=== PATIENT | female | born 1935 | race Caucasian/White ===

== ENCOUNTER → 2019-04-06 | Day surgery (SDC) | payer MEDICARE ==
[~2019-04-06] MED LIST: ACETAMINOPHEN 1,000 MG/100 ML BTL IVPB ONE; BUPIVACAINE 0.5% W/EPI MPF 30 ML VIAL SQ ONE; CEFAZOLIN 2 Gram 2 GM/50 ML BAG IVPB ONE; FENTANYL PF 100MCG/2ML VIAL IV ONE; KETOROLAC 30 MG/ML VIAL IVP ONE; LIDOCAINE 2% MDV (20MG/ML) 20ML VIAL IV ONE; METHYLPREDNISOLONE 40MG/VIAL IU ONE; MIDAZOLAM HCL 2MG/2ML VIAL IV ONE; MORPHINE SULFATE (PACU ONLY) 4 MG/ML VIAL IVP ONE; MORPHINE SULFATE PF 10MG/10ML *10ML VIAL IU ONE; ONDANSETRON HCL IV 4 MG/2 ML VIAL IVP ONE; PROPOFOL 10 MG/ML VIAL IV ONE; RINGERS SOLUTION,LACTATED 1,000 ML IV ONE; SEVOFLURANE 250 ML INH ONE
--- NOTE | 2019-04-07 09:41 | Operative Note ---
DATE OF SURGERY: 04/06/2019 PREOPERATIVE DIAGNOSIS: Internal derangement of the right knee. POSTOPERATIVE DIAGNOSES: 1. Tear of the medial and lateral meniscus. 2. Diffuse synovitis. 3. Grade 3 chondromalacia patella. 4. Fibrocartilage of the notch. 5. Grade 3 chondromalacia of medial femoral condyle. OPERATION: 1. Right knee arthroscopy with partial medial and lateral meniscectomy. 2. Right knee arthroscopy with complete synovectomy. 3. Right knee arthroscopy with chondroplasty of the patella and medial femoral condyle. STAFF SURGEON: Bassem Tom MD ANESTHESIA: General. PREPARATION: Chloraprep. INDIVIDUAL CONSIDERATIONS: None. PROCEDURE: The patient was taken to the operating room and placed supine on the operating room table. The patient had a successful induction with general anesthetic. The right lower extremity was prepped and draped in the usual fashion. The patient had a superolateral inflow cannula placed. Skin was infiltrated with 0.5% Marcaine with epinephrine prior. A blood-tinged effusion was drained. The knee was inflated with normal saline. An inferomedial and an inferolateral portal were made in a similar fashion. The arthroscope was introduced through the inferolateral portal up into the pouch. There was quite a bit of synovitis in the pouch and both gutters. This was debrided out with a shaver. Grade 3 change in the patella was smoothed with a shaver. Fibrocartilage in the notch was present. Medially there was a complex degenerative tear involving the posterior horn of the medial meniscus involving pretty much most of it. This was debrided out to a stable rim with a basket forceps and shaver. There was grade 3 change posteriorly on the femoral condyle which was smoothed. The tibial plateau was just soft change but otherwise looked good. In the notch, the cruciates were normal. Lateral compartment structures showed a degenerative tear involving the anterior and lateral horn of the lateral meniscus which was smoothed off with a shaver. Articular cartilage was intact. No loose bodies were seen in either gutter. After irrigation, portals were closed with wilber, and 20 mL of 0.5% Marcaine with epinephrine along with 4 mg of morphine and 40 mg of Depo-Medrol were injected into the knee. A sterile bulky compressive dressing was applied. The patient tolerated the procedure well. Needle and sponge counts were correct. Estimated blood loss was minimal. She was taken back to recovery in good condition. There were no complications. [facility]
== END | disposition home or self-care (01) ==
LOC: SUR 09:55
PROVIDERS: ATTEND Orthopaedic Surgery
DX: S83.231A Complex tear of medial meniscus, current injury, right knee, initial encounter (principal); S83.281A Other tear of lateral meniscus, current injury, right knee, initial encounter; M65.861 Other synovitis and tenosynovitis, right lower leg; M94.261 Chondromalacia, right knee; M94.8X6 Other specified disorders of cartilage, lower leg; E78.00 Pure hypercholesterolemia, unspecified; E03.9 Hypothyroidism, unspecified
CPT/HCPCS: 29880; 29876; 01400; J1885; J2405; J3010; J0690; J2270; J1030; J7120